=== PATIENT | male | born 2005 | race Caucasian/White ===

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

== ENCOUNTER 2023-03-29 19:12 | Emergency (ER) | payer SELFPAY ==
[2023-03-29 19:23] VITALS: BP 127/72; PULSE 82; RESP 18; TEMP 98.7; BMI 20.7
[2023-03-29] MEDS ORDERED: MAG HYDROX/AL HYDROX/SIMETH 30 ML UNIT-DOSE CUP PO PRN (19:57)
[2023-03-29] MEDS ORDERED: PANTOPRAZOLE SODIUM 40 MG VIAL IVPUSH ONE (19:57)
[2023-03-29] MEDS ORDERED: SODIUM CHLORIDE 0.9% 500 ML INFUS.BAG IV ONE ×2 (19:57→23:00)
[2023-03-29] MEDS ORDERED: ACETAMINOPHEN 1000 MG/100 ML BAG IVPB ONE (19:57)
[2023-03-29] MEDS ORDERED: MAG HYDROX/AL HYDROX/SIMETH 30 ML UNIT-DOSE CUP ONE (20:30)
[2023-03-29] MEDS ORDERED: ACETAMINOPHEN INJECTION 100 ML IVPB ONE (20:30)
[2023-03-29] MEDS ORDERED: PANTOPRAZOLE SODIUM 40 MG/100 ML BAG IVPB ONE (20:53)
[2023-03-29 21:09] LABS: BASO % 0.2 % (0-2.0); HEMATOCRIT 48.4 % (35.4-49); LYMPH % 14.5 % (8-40); MCH 30.2 pg (25.7-33.7); MCHC 35.2 g/dl (32.0-35.9); MEAN CELL VOLUME 85.8 fl (80-96); MEAN PLT VOLUME 7.2 fl (7.5-11.1); MONO % 11.7 % (3.8-10.2); NEUT % 73.6 % (42.8-82.8); PLATELET COUNT 344 10^3/uL (134-434); RBC 5.64 M/mm3 (4.00-5.60); RDW 13.1 % (11.9-15.9); WHITE BLOOD COUNT 11.3 K/mm3 (4.0-10.0)
[2023-03-29 21:28] LABS: POTASSIUM 3.9 mmol/L (3.5-5.1)
[2023-03-29 21:31] LABS: CALCIUM 10.3 mg/dL (8.5-10.1)
[2023-03-29 21:32] LABS: ALBUMIN 4.8 g/dl (3.4-5.0)
[2023-03-29 21:35] LABS: CREATININE 1.1 mg/dL (0.55-1.3)
[2023-03-29 21:36] LABS: TOT PROT 8.5 g/dl (6.4-8.2)
[2023-03-29 21:37] LABS: BILIRUBIN,TOTAL 3.4 mg/dL (0.2-1)
[2023-03-29 23:16] LABS: EPI CELLS 3 /uL (0-25.1); HYALINE CASTS 2 /uL (0-3.1); PH,URINE 6.5 (5.0-8.0); URINE APPEARANCE CLEAR; URINE BACTERIA 2 /uL (0-1359); URINE BILIRUBIN NEGATIVE (NEGATIVE); URINE COLOR YELLOW; URINE GLUCOSE (UA) NEGATIVE (NEGATIVE); URINE KETONE 1+ (NEGATIVE); URINE LEUK ESTERASE NEGATIVE (NEGATIVE); URINE NITRITE NEGATIVE (NEGATIVE); URINE PROTEIN 1+ (NEGATIVE); URINE RBC 47 /uL (0-23.9); URINE WBC 2 /uL (0-25.8)
== END 2023-03-30 00:05 | disposition home or self-care (01) ==
LOC: JER 19:12
PROC: 3E033NZ Introduction of Analgesics, Hypnotics, Sedatives into Peripheral Vein, Percutaneous Approach (ICD-10-PCS; principal; 2023-03-29)
PROC: 3E033GC Introduction of Other Therapeutic Substance into Peripheral Vein, Percutaneous Approach (ICD-10-PCS; 2023-03-29)
DX: R10.84 Generalized abdominal pain (principal); R11.2 Nausea with vomiting, unspecified
CPT/HCPCS: 36415; 74177-TC; 80053; 81003; 83690; 85025; 87086; 99285-25; Q9967

== ENCOUNTER 2023-03-30 20:27 | Emergency (ER) | payer OTHER ==
[2023-03-30 20:31] VITALS: BP 125/82; PULSE 68; RESP 20; TEMP 97.7; BMI 21.2
[2023-03-30] MEDS ORDERED: HALOPERIDOL LACTATE 5 MG/ML IM ONE ×2 (21:30→21:37)
[2023-03-31] MEDS ORDERED: FAMOTIDINE 20 MG TABLET PO ONE (00:36)
[2023-03-31] MEDS ORDERED: ACETAMINOPHEN 500 MG TABLET (FP) PO ONE (00:36)
[2023-03-31] MEDS ORDERED: MAG HYDROX/AL HYDROX/SIMETH -MYLANTA- ORAL SUSPENSION PO ONE (00:37)
[2023-03-31] MEDS ORDERED: FAMOTIDINE 20 MG TABLET ONE (00:39)
[2023-03-31] MEDS ORDERED: ACETAMINOPHEN 325 MG TABLET (FP) ONE (00:39)
[2023-03-31] MEDS ORDERED: MAG HYDROX/AL HYDROX/SIMETH 30 ML UNIT-DOSE CUP ONE (00:39)
== END 2023-03-31 01:04 | disposition home or self-care (01) ==
LOC: JER 20:27
PROC: 3E023GC Introduction of Other Therapeutic Substance into Muscle, Percutaneous Approach (ICD-10-PCS; principal; 2023-03-30)
DX: R11.2 Nausea with vomiting, unspecified (principal); F12.988 Cannabis use, unspecified with other cannabis-induced disorder
CPT/HCPCS: 99284-25

== ENCOUNTER 2023-06-04 20:40 | Inpatient (IN) | payer OTHER ==
[2023-06-04] MEDS ORDERED: MAG HYDROX/AL HYDROX/SIMETH -MYLANTA- ORAL SUSPENSION PO ONE (21:29)
[2023-06-04] MEDS ORDERED: FAMOTIDINE 20 MG/50 ML IVPB 20 MG in PREMIX 50 IVPB ONE (21:29)
[2023-06-04] MEDS ORDERED: SODIUM CHLORIDE 1,000 ML IV ONE (21:32)
[2023-06-04] MEDS ORDERED: MAG HYDROX/AL HYDROX/SIMETH 30 ML UNIT-DOSE CUP ONE (21:38)
[2023-06-04] MEDS ORDERED: FAMOTIDINE 20 MG/50 ML IVPB 20 MG/50 ML MG IVPB ONE (21:39)
[2023-06-04] MEDS ORDERED: ACETAMINOPHEN 1000 MG/100 ML BAG IVPB ONE (21:54)
[2023-06-04] MEDS ORDERED: ACETAMINOPHEN INJECTION 100 ML IVPB ONE (21:57)
[2023-06-04 22:15] LABS: HEMATOCRIT 48.5 % (35.4-49); HEMOGLOBIN 16.8 GM/dL (11.7-16.9); MCHC 34.6 g/dl (32.0-35.9); MEAN CELL VOLUME 86.7 fl (80-96); MEAN PLT VOLUME 7.5 fl (7.5-11.1); PLATELET COUNT 335 10^3/uL (134-434); RBC 5.59 M/mm3 (4.00-5.60)
[2023-06-04 22:20] LABS: POTASSIUM 4.5 mmol/L (3.5-5.1)
[2023-06-04 22:22] LABS: CALCIUM 10.6 mg/dL (8.5-10.1)
[2023-06-04 22:23] LABS: ALBUMIN 5.2 g/dl (3.4-5.0); BLOOD UREA NITROGEN 22.7 mg/dL (7-18)
[2023-06-04 22:26] LABS: CREATININE 1.1 mg/dL (0.55-1.3)
[2023-06-04 22:27] LABS: BILIRUBIN,TOTAL 3.2 mg/dL (0.2-1); TOT PROT 8.2 g/dl (6.4-8.2)
[2023-06-04] MEDS ORDERED: METOCLOPRAMIDE HCL INJECTION 10 MG/2 ML VIAL IVPUSH ONE (22:27)
[2023-06-04] MEDS ORDERED: METOCLOPRAMIDE HCL INJECTION 10 MG/2 ML VIAL ONE (23:09)
[2023-06-04 23:14] LABS: ANISOCYTOSIS 0; MACROCYTOSIS 0
[2023-06-05] MEDS ORDERED: ONDANSETRON 4 MG/2 ML VIAL ONE (00:34)
[2023-06-05] MEDS ORDERED: ACETAMINOPHEN 1000 MG/100 ML BAG IVPB PRN (00:36)
[2023-06-05] MEDS: LACTATED RINGERS SOLUTION 1,000 ML/1,000 ML INFUS.BAG IV SCH (00:39)
[2023-06-05] MEDS: ONDANSETRON 4 MG/2 ML VIAL IVPUSH PRN ×2 (00:40→22:42)
[2023-06-05] MEDS ORDERED: levETIRAcetam 500 MG TABLET (FP) PO ONE (01:12)
[2023-06-05] MEDS: levETIRAcetam 500 MG TABLET (FP) PO SCH ×3 (01:17→21:42)
[2023-06-05 02:53] LABS: BILIRUBIN,DIRECT 0.4 mg/dL (0.0-0.2)
[2023-06-05 03:31] VITALS: BMI 22.8
[2023-06-05 09:10] LABS: HEMATOCRIT 41.3 % (35.4-49); MCH 30.4 pg (25.7-33.7); MCHC 33.8 g/dl (32.0-35.9); MEAN CELL VOLUME 89.8 fl (80-96); MEAN PLT VOLUME 7.7 fl (7.5-11.1); PLATELET COUNT 270 10^3/uL (134-434); RDW 13.4 % (11.9-15.9); WHITE BLOOD COUNT 11.7 K/mm3 (4.0-10.0)
[2023-06-05 09:11] LABS: BASO % 0.2 % (0-2.0); HEMATOCRIT 42.1 % (35.4-49); LYMPH % 10.3 % (8-40); MCH 29.5 pg (25.7-33.7); MCHC 33.1 g/dl (32.0-35.9); MEAN CELL VOLUME 89.2 fl (80-96); MEAN PLT VOLUME 7.7 fl (7.5-11.1); MONO % 8.1 % (3.8-10.2); NEUT % 81.4 % (42.8-82.8); PLATELET COUNT 289 10^3/uL (134-434); RBC 4.72 M/mm3 (4.00-5.60); RDW 13.7 % (11.9-15.9); WHITE BLOOD COUNT 11.5 K/mm3 (4.0-10.0)
[2023-06-05 09:26] LABS: POTASSIUM 3.8 mmol/L (3.5-5.1)
[2023-06-05 09:28] LABS: BLOOD UREA NITROGEN 17.2 mg/dL (7-18)
[2023-06-05] MEDS: PANTOPRAZOLE SODIUM 40 MG VIAL IVPUSH SCH (09:30)
[2023-06-05 09:31] LABS: BILIRUBIN,DIRECT 0.4 mg/dL (0.0-0.2); CREATININE 0.9 mg/dL (0.55-1.3)
[2023-06-05 09:34] LABS: CALCIUM 8.9 mg/dL (8.5-10.1)
[2023-06-05 09:37] LABS: BILIRUBIN,DIRECT 0.4 mg/dL (0.0-0.2)
[2023-06-05 09:39] LABS: BILIRUBIN,TOTAL 2.3 mg/dL (0.2-1); TOT PROT 6.6 g/dl (6.4-8.2)
[2023-06-05 09:44] LABS: ALBUMIN 3.9 g/dl (3.4-5.0)
[2023-06-05] MEDS ORDERED: ALBUTEROL SO4 HFA INHALER IH PRN (10:00)
[2023-06-05 13:19] LABS: HIV INTERPRETATION NEGATIVE (NEGATIVE)
[2023-06-05 14:34] LABS: LDH 134 U/L (87-246)
[2023-06-05 23:39] LABS: URINE APPEARANCE CLEAR; URINE BILIRUBIN NEGATIVE (NEGATIVE); URINE COLOR YELLOW; URINE GLUCOSE (UA) NEGATIVE (NEGATIVE); URINE KETONE 3+ (NEGATIVE); URINE LEUK ESTERASE NEGATIVE (NEGATIVE); URINE NITRITE NEGATIVE (NEGATIVE); URINE PROTEIN NEGATIVE (NEGATIVE); URINE UROBILINOGEN 0.2 mg/dL (0.2-1.0)
[2023-06-05 23:49] LABS: OPIATES, URI NEGATIVE (NEGATIVE); URINE BARBITURATES NEGATIVE (NEGATIVE)
[2023-06-05 23:50] LABS: COCAINE, UR NEGATIVE (NEGATIVE); METHADONE, UR NEGATIVE (NEGATIVE); PHENCYCLIDINE,URINE NEGATIVE (NEGATIVE); URINE BENZODIAZEPINES NEGATIVE (NEGATIVE)
[2023-06-05 23:51] LABS: URINE AMPHETAMINES NEGATIVE (NEGATIVE)
[2023-06-06] MEDS: LACTATED RINGERS SOLUTION 1,000 ML/1,000 ML INFUS.BAG IV SCH ×2 (02:11→14:57)
[2023-06-06] MEDS: ONDANSETRON 4 MG/2 ML VIAL IVPUSH PRN ×3 (02:27→17:20)
[2023-06-06] MEDS: PANTOPRAZOLE SODIUM 40 MG VIAL IVPUSH SCH (09:01)
[2023-06-06] MEDS: levETIRAcetam 500 MG TABLET (FP) PO SCH ×2 (09:01→21:46)
[2023-06-06 09:21] LABS: BASO % 0.2 % (0-2.0); EOS % 0.1 % (0-4.5); HEMATOCRIT 45.4 % (35.4-49); LYMPH % 21.7 % (8-40); MCH 29.2 pg (25.7-33.7); MCHC 33.1 g/dl (32.0-35.9); MEAN CELL VOLUME 88.2 fl (80-96); MEAN PLT VOLUME 7.4 fl (7.5-11.1); MONO % 8.6 % (3.8-10.2); NEUT % 69.4 % (42.8-82.8); PLATELET COUNT 316 10^3/uL (134-434); RBC 5.15 M/mm3 (4.00-5.60); RDW 13.6 % (11.9-15.9); WHITE BLOOD COUNT 12.4 K/mm3 (4.0-10.0)
[2023-06-06 09:38] LABS: POTASSIUM 3.7 mmol/L (3.5-5.1)
[2023-06-06 09:41] LABS: BLOOD UREA NITROGEN 11.1 mg/dL (7-18); CALCIUM 9.4 mg/dL (8.5-10.1)
[2023-06-06 09:42] LABS: ALBUMIN 4.4 g/dl (3.4-5.0)
[2023-06-06 09:44] LABS: BILIRUBIN,DIRECT 0.4 mg/dL (0.0-0.2); CREATININE 1.2 mg/dL (0.55-1.3); PHOSPHOROUS 3.3 mg/dL (2.5-4.9)
[2023-06-06 09:46] LABS: BILIRUBIN,TOTAL 2.8 mg/dL (0.2-1); TOT PROT 7.4 g/dl (6.4-8.2)
[2023-06-06] MEDS: MAG HYDROX/AL HYDROX/SIMETH 30 ML UNIT-DOSE CUP PO PRN (14:57)
[2023-06-06] MEDS: ACETAMINOPHEN 1000 MG/100 ML BAG IVPB PRN (17:02)
[2023-06-07] MEDS: LACTATED RINGERS SOLUTION 1,000 ML/1,000 ML INFUS.BAG IV SCH (04:38)
[2023-06-07] MEDS: ONDANSETRON 4 MG/2 ML VIAL IVPUSH PRN (08:51)
[2023-06-07] MEDS: levETIRAcetam 500 MG TABLET (FP) PO SCH ×2 (10:01→21:57)
[2023-06-07] MEDS: ACETAMINOPHEN 1000 MG/100 ML BAG IVPB PRN (10:01)
[2023-06-07] MEDS: PANTOPRAZOLE SODIUM 40 MG VIAL IVPUSH SCH (10:02)
[2023-06-07] MEDS: SUCRALFATE 1 GM/10 ML UNIT DOSE CUPS PO SCH ×2 (12:23→16:52)
[2023-06-07] MEDS: MAG HYDROX/AL HYDROX/SIMETH 30 ML UNIT-DOSE CUP PO PRN (13:54)
[2023-06-08] MEDS: LACTATED RINGERS SOLUTION 1,000 ML/1,000 ML INFUS.BAG IV SCH ×2 (07:52→22:29)
[2023-06-08 09:32] LABS: BASO % 0.6 % (0-2.0); HEMATOCRIT 46.2 % (35.4-49); HEMOGLOBIN 16.1 GM/dL (11.7-16.9); LYMPH % 38.5 % (8-40); MCH 30.6 pg (25.7-33.7); MCHC 34.9 g/dl (32.0-35.9); MEAN CELL VOLUME 87.7 fl (80-96); MEAN PLT VOLUME 7.5 fl (7.5-11.1); MONO % 9.9 % (3.8-10.2); PLATELET COUNT 295 10^3/uL (134-434); RBC 5.27 M/mm3 (4.00-5.60); RDW 13.3 % (11.9-15.9); WHITE BLOOD COUNT 8.2 K/mm3 (4.0-10.0)
[2023-06-08 09:56] LABS: POTASSIUM 3.6 mmol/L (3.5-5.1)
[2023-06-08 10:10] LABS: ALBUMIN 4.3 g/dl (3.4-5.0)
[2023-06-08 10:11] LABS: CALCIUM 9.5 mg/dL (8.5-10.1)
[2023-06-08 10:12] LABS: BLOOD UREA NITROGEN 10.9 mg/dL (7-18)
[2023-06-08 10:14] LABS: BILIRUBIN,TOTAL 2.7 mg/dL (0.2-1); TOT PROT 7.4 g/dl (6.4-8.2)
[2023-06-08] MEDS: PANTOPRAZOLE SODIUM 40 MG VIAL IVPUSH SCH (10:17)
[2023-06-08] MEDS: levETIRAcetam 500 MG TABLET (FP) PO SCH ×2 (10:17→22:29)
[2023-06-08] MEDS: SUCRALFATE 1 GM/10 ML UNIT DOSE CUPS PO SCH (10:17)
[2023-06-08] MEDS: MAG HYDROX/AL HYDROX/SIMETH 30 ML UNIT-DOSE CUP PO PRN (13:58)
[2023-06-08] MEDS: ONDANSETRON 4 MG/2 ML VIAL IVPUSH PRN (13:58)
[2023-06-09 09:06] LABS: BASO % 0.3 % (0-2.0); EOS % 2.8 % (0-4.5); HEMATOCRIT 42.9 % (35.4-49); HEMOGLOBIN 15.2 GM/dL (11.7-16.9); LYMPH % 31.9 % (8-40); MCH 30.7 pg (25.7-33.7); MCHC 35.4 g/dl (32.0-35.9); MEAN CELL VOLUME 86.9 fl (80-96); MEAN PLT VOLUME 7.4 fl (7.5-11.1); MONO % 9.7 % (3.8-10.2); NEUT % 55.3 % (42.8-82.8); PLATELET COUNT 274 10^3/uL (134-434); RBC 4.93 M/mm3 (4.00-5.60); RDW 13.1 % (11.9-15.9); WHITE BLOOD COUNT 7.4 K/mm3 (4.0-10.0)
[2023-06-09 09:15] LABS: POTASSIUM 3.7 mmol/L (3.5-5.1)
[2023-06-09 09:21] LABS: BLOOD UREA NITROGEN 11.8 mg/dL (7-18)
[2023-06-09] MEDS: levETIRAcetam 500 MG TABLET (FP) PO SCH ×2 (10:40→21:28)
[2023-06-09] MEDS: PANTOPRAZOLE SODIUM 40 MG VIAL IVPUSH SCH (10:40)
[2023-06-09] MEDS: LACTATED RINGERS SOLUTION 1,000 ML/1,000 ML INFUS.BAG IV SCH ×2 (10:41→16:29)
[2023-06-09] MEDS ORDERED: HALOPERIDOL LACTATE 5 MG/ML IM ONE ×2 (13:39→13:40)
[2023-06-10] MEDS: LACTATED RINGERS SOLUTION 1,000 ML/1,000 ML INFUS.BAG IV SCH (04:25)
[2023-06-10 09:20] VITALS: BP 127/73; PULSE 78; RESP 18; TEMP 98
[2023-06-10] MEDS: levETIRAcetam 500 MG TABLET (FP) PO SCH (09:51)
[2023-06-10] MEDS: PANTOPRAZOLE SODIUM 40 MG VIAL IVPUSH SCH (09:51)
== END 2023-06-10 10:38 | disposition home or self-care (01) | DRG 249 ==
LOC: JER 20:40 → JERBED 06-05 00:23 → UNDOADMOB 06-05 00:23 → INTOOBSV 06-05 00:34 → OBSVTOIN 06-05 00:34 → J5S 06-05 02:28 → JERBED 06-05 02:28 → J5S 06-05 11:35 → JERBED 06-05 11:35 → J5S 06-06 21:33 → OBSVTOIN 06-08 16:04
PROVIDERS: ADMIT Internal Medicine; ATTEND Internal Medicine
PROC: 0DB68ZX Excision of Stomach, Via Natural or Artificial Opening Endoscopic, Diagnostic (ICD-10-PCS; 2023-06-09)
PROC: 0DB98ZX Excision of Duodenum, Via Natural or Artificial Opening Endoscopic, Diagnostic (ICD-10-PCS; principal; 2023-06-09 09:00)
DX: R11.2 Nausea with vomiting, unspecified (principal); R07.89 Other chest pain; D72.829 Elevated white blood cell count, unspecified; R10.13 Epigastric pain; R56.9 Unspecified convulsions; J45.30 Mild persistent asthma, uncomplicated; K21.9 Gastro-esophageal reflux disease without esophagitis; F12.90 Cannabis use, unspecified, uncomplicated; E80.6 Other disorders of bilirubin metabolism
CPT/HCPCS: 36415; 71046-TC-FY; 74176-TC; 76705-TC; 80048; 80053; 80076; 80307; 81003; 82248; 82550; 83615; 83690; 83735; 83970; 84100; 84439; 84443; 85025; 85027; 85651; 86140; 86850; 86900; 86901; 87086; 87389; 88305-TC; 93005; 93010; 99285-25; G0378